=== PATIENT | male | born 1945 | race Caucasian/White ===

== ENCOUNTER 2021-06-19 12:57 | Outpatient (REF) | payer MEDICARE, MEDICAID, SELFPAY ==
--- NOTE | ~2021-06-19 | CT_ITS ---
EXAMINATION: CT HEAD WITHOUT CONTRAST CLINICAL INFORMATION: Non intractable epilepsy. COMPARISON: None TECHNIQUE: Contiguous axial imaging was performed from the skull base to vertex without intravenous administration of contrast. This CT examination was performed using dose optimization techniques as appropriate, variously including the following: *Automated exposure control *Adjustment of mA and/or kV according to patient size (this includes techniques or standardized protocols for targeted exams where dose is matched to indication/reason for exam; i.e. extremities or head) *Use of iterative reconstruction technique DLP: 1091 mGy-cm FINDINGS: There is no evidence of acute intracranial hemorrhage or territorial infarction. No abnormal mass effect or midline shift is seen. Multani to white matter differentiation is well preserved. No extra-axial fluid collections are identified. The ventricles are prominent in size. 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 The osseous structures and soft tissues are normal. The mastoid air are well aerated. Mucosal thickening is seen within the right maxillary sinus. No air-fluid levels within the paranasal sinuses identified. There is significant artifact at the skull base limiting evaluation of the temporal lobes, right greater than left. A right extra-axial collection or mass cannot be excluded, however, there is no mass effect about the right temporal horn. CT/CT head/brain wo con IMPRESSION: No acute intracranial pathology. MRI may be of help in further evaluation for possible mass lesions without edema.
== END 2021-06-19 12:58 | disposition home or self-care (01) ==
LOC: HO.CT 12:57
PROVIDERS: Visit Provider Psychiatry & Neurology Neurology
DX: G40.909 Epilepsy, unspecified, not intractable, without status epilepticus (principal)
CPT/HCPCS: 70450

== ENCOUNTER 2024-11-01 10:54 | Outpatient (AMB) | payer MEDICARE, MEDICAID, SELFPAY ==
--- NOTE | 2024-11-01 10:56 | A.OFFVIS_ITS ---
Intake Visit Reasons: 1 Yr follow up Accompanied by: staff member Allergies No Known Allergies Allergy (Verified 11/01/24 11:05) Medication List - Last Reconciled 11/01/24 by Maeve Smiley CNP carbamazepine 200 mg PO TID citalopram 15 mg PO hydrochlorothiazide 12.5 mg PO DAILY lorazepam 0.5 mg PO DAILY PRN HPI Comments Details: He was doing okay. No seizures reported. He was a bit more forgetful, sometimes forgetting his wallet at day program, which could make him frustrated and a ccusatory at times. Otherwise, mood and behavior were okay. They were asking for referral for neuropsych testing. He was going to day program 3 days/week. Sleep was okay. Incontinent of urine. On soft ground diet for dysphagia. He has a history of hypertension, hypercholesterolemia and mild encephalopathy with secondary seizures. Episodes of urinary incontinence without witnessed seizure. [facility], [facility] Medical History (Updated 11/01/24 @ 11:12 by Maeve Smiley CNP) MCI (mild cognitive impairment) Seizure disorder Encephalopathy Dysphagia Hypercholesteremia Hypertension hypoxic-ischemic encephalopathy Seizures Review of Systems Const Denies chills, Denies daytime sleepiness, Denies difficulty sleeping, Denies fatigue, Denies fever(s), Denies frequent falls, Denies headache(s), Denies increased appetite, Denies poor appetite, Denies snoring, Denies weakness, Denies weight gain and Denies weight loss Eyes Denies loss of vision ENT Denies vertigo, Denies dizziness, Denies headache(s) and Denies neck pain Card Denies chest pain at rest, Denies chest pain with activity, Denies syncope, Denies leg edema, Denies palpitations, Denies dyspnea and Denies dyspnea on exer tion Resp Denies cough, Denies dyspnea, Denies dyspnea on exertion and Denies snoring GI Denies abdominal pain, Denies constipation, Denies heartburn, Denies diarrhea and Denies nausea Denies urinary frequency, Reports urinary incontinence and Denies urinary urgency Musc Denies abnormal gait, Denies back pain, Denies myalgias, Denies arthralgias, Denies neck pain, Denies numbness and Denies tingling Neuro Denies abnormal gait, Denies vertigo, Denies dizziness, Denies syncope, Denies frequent falls, Denies headache(s), Denies lack of coordination, Denies loss of vision, Denies memory loss, Denies numbness, Denies Other visual disturbances, Denies restless legs, Denies seizure-like activity, Denies tingling, Denies paresthesias, Denies tremor(s) and Denies weakness Psych Denies anxiety, Denies depression, Denies auditory hallucinations, Denies memory loss and Denies visual hallucinations Endo Denies fatigue and Denies palpitations Physical Exam Const Other: General Appearance:? normal, in no acute distress. Heart:? S1, S2 normal, no murmurs. Lungs:? clear anteriorly and posteriorly. Musculoskeletal:? normal. Extremities:? no edema. Psych:? alert, cooperative with exam. Neuro Other: Abnormal Neurological Findings:?Mild intellectual disability. Follows simple commands. Slightly slow ataxic gait with walker. He was able to tell me who he was with. Mental Status: Mild intellectual disability. Cranial Nerves: Pupils are equal, round, and reactive to light. External ocular muscles are intact. Visual renee are full, no ptosis. Face is symmetrical, no facial weakness or droop. Facial sensations are normal. Tongue protrudes in midline. Palate elevates symmetrically. Shoulder shrugging is normal Sensory Exam: Normal light touch, temperature, pinprick, vibration, and joint- position sensations. Rhomberg sign is absent. Coordination: No ataxia. No titubation. Gait Exam: Mild ataxia with walker. Cerebellar Signs: [id number] is okay. Extrapyramidal System: No tremor, rigidity with normal facial expressions. No bradykinesia. No bradyphrenia. Normal arm swing and posture. No propulsion or re tropulsion. Speech: Slight dysarthria. Results Reviewed Results Reviewed: 03/15/21 EEG- WNL 06/19/21 CT shows atrophy and age related changes. No acute findings. Assessment & Plan Assessment & Plan (1) Seizure disorder: Code(s): G40.909 - Epilepsy, unspecified, not intractable, without status epilepticus Category: Medical Plan: Continue carbamazepine 200mg 1 tablet by mouth three times a day (may crush tablet). (2) hypoxic-ischemic encephalopathy: Code(s): P91.60 - Hypoxic ischemic encephalopathy [HIE], unspecified Category: Medical Qualifiers: Hypoxic ischemic encephalopathy severity: unspecified severity Qualified Code(s): P91.60 - Hypoxic ischemic encephalopathy [HIE], unspecified Plan: He was more forgetful which could make him frustrated at times. Staff was asking for neuropsych testing and referral was placed. Orders: Referrals Neuropsychiatry Referral G31.84 - Mild cognitive impairment of uncertain or unknown etiology, P91.60 - Hypoxic ischemic encephalopathy [HIE], unspecified Coding Level of Care Code Est Pt Level 4 (28232) Diagnoses Seizure disorder G40.909 hypoxic-ischemic encephalopathy, unspecified severity P91.60 Hypoxic ischemic encephalopathy severity: unspecified severity
== END 2024-11-01 11:34 | disposition home or self-care (01) ==
LOC: HO.HSM 10:55
PROVIDERS: PCP Internal Medicine; Referring Provider Internal Medicine; Visit Provider Registered Nurse
DX: G40.909 Epilepsy, unspecified, not intractable, without status epilepticus (principal); P91.60 Hypoxic ischemic encephalopathy [HIE], unspecified
CPT/HCPCS: 99214

== ENCOUNTER → 2024-11-01 10:54 | Outpatient (BNVA) | payer MEDICARE, MEDICAID, SELFPAY | PROVIDERS: PCP Internal Medicine; Referring Provider Internal Medicine; Visit Provider Registered Nurse | DX: G40.909 Epilepsy, unspecified, not intractable, without status epilepticus (principal); P91.60 Hypoxic ischemic encephalopathy [HIE], unspecified | CPT/HCPCS: 99212 ==